=== PATIENT | male | born 1980 | race Caucasian/White ===

== ENCOUNTER 2018-12-11 00:42 | Emergency (ER) | payer BC ==
[2018-12-11] MEDS ORDERED: Acetaminophen/HYDROcodone 325-5 MG Tab PO ONE (00:43)
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
[2018-12-11] MEDS: Colchicine 0.6 MG Tab PO ONE ×2 (01:40)
--- NOTE | 2018-12-12 12:19 | CR ---
INDICATION: No known injury or trauma, has pain. Unable to flex or extend ankle. LEFT ANKLE: Three views of the left ankle revealed soft tissue swelling overlying the lateral malleolus. A bony density adjacent to the lateral malleolus most likely represents either an ununited chip fracture fragment from a previous injury or an accessory ossification center. An additional smaller density is noted more medially and inferiorly. However, a fracture or dislocation was not identified. Overall bone density appeared to be normal with no focal abnormal bone density seen. The ankle mortise is very slightly asymmetrical with slightly less joint space laterally raising question of inflammatory arthritic change. This should be correlated clinically. The ankle mortise was otherwise intact. A moderate to moderately large plantar calcaneus spur is noted. IMPRESSION: 1. Very slight narrowing of the lateral ankle mortise joint space, which could be on the basis of arthritis but should be correlated clinically. 2. Bony densities likely represent either chip fracture fragments that did not unite or accessory ossification centers at the lateral malleolus; however there is soft tissue swelling overlying this area, which should be correlated clinically. 3. Plantar calcaneal spur. If a focal bony abnormality is suspected clinically, additional examination such as MRI or nuclear bone imaging may be helpful. ZAYNABD
== END 2018-12-11 01:15 | disposition home or self-care (01) ==
LOC: FB.ED 00:42
DX: M10.072 Idiopathic gout, left ankle and foot (principal); I10 Essential (primary) hypertension; F17.210 Nicotine dependence, cigarettes, uncomplicated
CPT/HCPCS: 36415; 73610; 80048; 84550; 85025; 99283; A9270

== ENCOUNTER 2020-06-15 00:04 | Emergency (ER) | payer BC ==
[2020-06-15] MEDS ORDERED: methylPREDNISolone Sodium Succinate 125 MG/2 ML SDV IM ONE (00:15)
--- NOTE | 2020-06-15 01:07 | EDM.PDOC ---
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 helped his father put a canopy over his boat hoist, had put a mower on a trailer and had cinched it down pain is over L bicep tendon also has a mass that he noted in his L mid forearm no known injury no meds, did take ibuprofen 800 mg 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 L shoulder Pain Score (Numeric/FACES): 8 - Related Data Allergies Allergy/AdvReac Type Severity Reaction Status Date / Time No Known Allergies Allergy Verified 06/15/20 00:25 Home Meds: Home Meds Indomethacin [Indocin] 50 mg PO TID PRN #30 cap 12/11/18 [Rx] Lisinopril/Hydrochlorothiazide [Lisinopril-Hctz 10-12.5 mg Tab] 1 each PO DAILY 06/15/20 [History] allopurinoL [Zyloprim] 100 mg PO DAILY 06/15/20 [History] amLODIPine [Norvasc] 5 mg PO DAILY 06/15/20 [History] atorvaSTATin Calcium [Lipitor] 20 mg PO BEDTIME 06/15/20 [History] metFORMIN [Glucophage] 500 mg PO BIDMEALS 06/15/20 [History] predniSONE [Prednisone] 20 mg PO DAILY #5 tablet 06/15/20 [Rx] Past Medical History Cardiovascular History: Reports: High Cholesterol, Hypertension Respiratory History: Reports: Sleep Apnea Other Respiratory History: uses CPAP Musculoskeletal History: Reports: Fracture, Gout Other Musculoskeletal History: fx L thumb Endocrine/Metabolic History: Reports: Diabetes, Type II, Obesity/BMI 30+ - Infectious Disease History Infectious Disease History: Reports: Chicken Pox - Past Surgical History Musculoskeletal Surgical History: Reports: ORIF Other Musculoskeletal Surgeries/Procedures:: L thumb pinning Social & Family History - Family History Family Medical History: No Pertinent Family History - Tobacco Use Tobacco Use Status *Q: Current Every Day Tobacco User Years of Tobacco use: 10 Packs/Tins Daily: 0.8 - Caffeine Use Caffeine Use: Reports: Soda - Recreational Drug Use Recreational Drug Use: No ED ROS GENERAL - Review of Systems Review Of Systems: See Below Constitutional: Reports: No Symptoms HEENT: Reports: No Symptoms Respiratory: Reports: No Symptoms Cardiovascular: Reports: No Symptoms Endocrine: Reports: No Symptoms GI/Abdominal: Reports: No Symptoms : Reports: No Symptoms Musculoskeletal: Reports: Shoulder Pain, Muscle Pain Skin: Reports: No Symptoms Neurological: Reports: No Symptoms Psychiatric: Reports: No Symptoms Hematologic/Lymphatic: Reports: No Symptoms Immunologic: Reports: No Symptoms ED EXAM, GENERAL - Physical Exam Exam: See Below Exam Limited By: No Limitations General Appearance: Alert, WD/WN, No Apparent Distress Nose: Normal Inspection Throat/Mouth: Normal Inspection Head: Atraumatic Neck: Normal Inspection, Supple, Non-Tender. No: Lymphadenopathy (R), Lymphadenopathy (L) Respiratory/Chest: No Respiratory Distress, Lungs Clear, Normal Breath Sounds, No Accessory Muscle Use Cardiovascular: Regular Rate, Rhythm, No Edema, No Murmur GI/Abdominal: Soft, Non-Tender, No Distention Back Exam: Normal Inspection, Full Range of Motion Extremities: Other (takes off sweatshirt with R arm, leaves L arm at site, does allow passive ROM to 90 degrees of flex and abduction altho winces with pain, 1+ tender over biceps tender) Neurological: Alert, Oriented, CN II-XII Intact, Normal Cognition, No Motor/Sensory Deficits, Other (NT over L AC joint, mild tender at anterior L GH joint line, L humerus NT, questionable subc density of 10 x 5 x 5 cm over L biceps that may be slightly tender, not discrete) Psychiatric: Normal Affect, Normal Mood Skin Exam: Warm, Dry, Intact, Normal Color, No Rash Lymphatic: No Adenopathy Course - Vital Signs Last Recorded V/S: Last Vital Signs Temp 36.5 C 06/15/20 00:20 Pulse 89 06/15/20 02:18 Resp 18 06/15/20 02:18 BP 128/88 06/15/20 02:18 Pulse Ox 97 06/15/20 02:18 - Orders/Labs/Meds Orders: Active Orders 24 hr Category Date Time Status Humerus Lt [CR] Stat Exams 06/15/20 00:15 Taken Shoulder Comp Lt [CR] Stat Exams 06/15/20 00:15 Taken Labs: Laboratory Tests 05/09/2806/15/20 06/15/20 Range/Units 00:25 00:25 00:25 WBC 9.6 (3.2-10.1) x10-3/uL RBC 5.32 (3.90-5.90) x10(6)uL Hgb 15.5 (12.9-17.7) g/dL Hct 45.7 (38.3-50.1) % MCV 85.8 (80.8-98.7) fL MCH 29.1 (27.0-33.3) pg MCHC 33.9 (28.7-35.3) g/dL RDW 13.0 (12.4-15.0) % Plt Count 241 (117-477) x10(3)uL MPV 7.8 (6.7-11.0) fL Neut % (Auto) 55.0 (40.3-71.8) % Lymph % (Auto) 29.8 (15.8-45.3) % [place] % (Auto) 8.9 (5.5-15.2) % Eos % (Auto) 5.1 (0.1-6.8) % Baso % (Auto) 1.2 (0.3-3.8) % Neut # (Auto) 5.3 (1.7-6.9) x10-3/uL Lymph # (Auto) 2.9 (0.5-4.5) x10-3/uL [place] # (Auto) 0.9 (0.0-1.2) x10-3/uL Eos # (Auto) 0.5 (0.0-0.6) x10-3/uL Baso # (Auto) 0.1 (0.0-0.3) x10-3/uL Sodium 139 (135-145) mmol/L Potassium 3.8 (3.5-5.3) mmol/L Chloride 102 (100-110) mmol/L Carbon Dioxide 23 (21-32) mmol/L BUN 19 H (7-18) mg/dL Creatinine 1.0 (0.70-1.30) mg/dL Est Cr Clr Drug Dosing 102.49 mL/min Estimated GFR (MDRD) > 60 (>60) BUN/Creatinine Ratio 19.0 (9-20) Glucose 147 H (80-116) mg/dL Uric Acid 6.0 (2.6-6.0) mg/dL Calcium 8.7 (8.6-10.2) mg/dL Total Bilirubin 0.4 (0.1-1.3) mg/dL AST 21 (5-25) IU/L ALT 49 H (12-36) U/L Alkaline Phosphatase 93 (56-112) IU/L Creatine Kinase 180 H (60-160) IU/L C-Reactive Protein (0.5-0.9) mg/dL Total Protein 7.2 (6.0-8.0) g/dL Albumin 3.2 L (3.5-5.2) g/dL Globulin 4.0 g/dL Albumin/Globulin Ratio 0.8 Urine Color (YELLOW) Urine Appearance (CLEAR) Urine pH (5.0-6.5) Ur Specific [place] (1.010-1.025) Urine Protein (NEGATIVE) mg/dL Urine Glucose (UA) (NORMAL) mg/dL Urine Ketones (NEGATIVE) mg/dL Urine Occult Blood (NEGATIVE) Urine Nitrite (NEGATIVE) Urine Bilirubin (NEGATIVE) Urine Urobilinogen (NEGATIVE) mg/dL Ur Leukocyte Esterase (NEGATIVE) Urine RBC (0-5) Urine WBC (0-5) Ur Squamous Epith Cells (NS,R,O) Urine Bacteria (NS) Coarse Granular Casts (NS) 06/15/20 06/15/20 Range/Units 00:25 01:30 WBC (3.2-10.1) x10-3/uL RBC (3.90-5.90) x10(6)uL Hgb (12.9-17.7) g/dL Hct (38.3-50.1) % MCV (80.8-98.7) fL MCH (27.0-33.3) pg MCHC (28.7-35.3) g/dL RDW (12.4-15.0) % Plt Count (117-477) x10(3)uL MPV (6.7-11.0) fL Neut % (Auto) (40.3-71.8) % Lymph % (Auto) (15.8-45.3) % [place] % (Auto) (5.5-15.2) % Eos % (Auto) (0.1-6.8) % Baso % (Auto) (0.3-3.8) % Neut # (Auto) (1.7-6.9) x10-3/uL Lymph # (Auto) (0.5-4.5) x10-3/uL [place] # (Auto) (0.0-1.2) x10-3/uL Eos # (Auto) (0.0-0.6) x10-3/uL Baso # (Auto) (0.0-0.3) x10-3/uL Sodium (135-145) mmol/L Potassium (3.5-5.3) mmol/L Chloride (100-110) mmol/L Carbon Dioxide (21-32) mmol/L BUN (7-18) mg/dL Creatinine (0.70-1.30) mg/dL Est Cr Clr Drug Dosing mL/min Estimated GFR (MDRD) (>60) BUN/Creatinine Ratio (9-20) Glucose (80-116) mg/dL Uric Acid (2.6-6.0) mg/dL Calcium (8.6-10.2) mg/dL Total Bilirubin (0.1-1.3) mg/dL AST (5-25) IU/L ALT (12-36) U/L Alkaline Phosphatase (56-112) IU/L Creatine Kinase (60-160) IU/L C-Reactive Protein 0.3 L (0.5-0.9) mg/dL Total Protein (6.0-8.0) g/dL Albumin (3.5-5.2) g/dL Globulin g/dL Albumin/Globulin Ratio Urine Color Yellow (YELLOW) Urine Appearance Clear (CLEAR) Urine pH 5.0 (5.0-6.5) Ur Specific [place] 1.025 (1.010-1.025) Urine Protein 500 H (NEGATIVE) mg/dL Urine Glucose (UA) Normal (NORMAL) mg/dL Urine Ketones Negative (NEGATIVE) mg/dL Urine Occult Blood Negative (NEGATIVE) Urine Nitrite Negative (NEGATIVE) Urine Bilirubin Negative (NEGATIVE) Urine Urobilinogen Normal (NEGATIVE) mg/dL Ur Leukocyte Esterase Negative (NEGATIVE) Urine RBC 0-5 (0-5) Urine WBC 0-5 (0-5) Ur Squamous Epith Cells Occasional (NS,R,O) Urine Bacteria Occasional H (NS) Coarse Granular Casts Occasional H (NS) Meds: Medications Discontinued Medications Generic Name Dose Route Start Last Admin Trade Name Marshall PRN Reason Stop Dose Admin Methylprednisolone Sodium Succinate 125 mg 06/15/20 00:15 06/15/20 00:58 Methylprednisolone Sodium Succinate 125 Mg/2 Ml Sdv IM 06/15/20 00:16 125 mg ONETIME ONE Administration - Re-Assessments/Exams Free Text/Narrative Re-Assessment/Exam: 06/15/20 05:12 tender over biceps tendon questionable soft tissue density at L biceps prelim ED read of L shoulder and L humerus films are neg has inc'd gluc, A1C was inc'd in past, then dec'd, may need to be checked again unclear if pt has connective tissue disorder, has low alb, u/a shows protein which says is old yet not had 24 urine in past, unclear if he may have nephrotic syndrome vs CTD uric acid 7.7 in past, now 6.0 unclear why CK is inc'd Departure - Departure Time of Disposition: 02:28 Disposition: Home, Self-Care 01 Preliminary Cause of *Q: Sepsis & Multi System Organ Failure Clinical Impression: Biceps tendinitis of left shoulder, Elevated CK, Elevated ALT measurement, Hypoalbuminemia, Proteinuria, Hyperglycemia - Discharge Information *PRESCRIPTION DRUG MONITORING PROGRAM REVIEWED*: Not Applicable *COPY OF PRESCRIPTION DRUG MONITORING REPORT IN PATIENT [place]O: Not Applicable Prescriptions: predniSONE [Prednisone] 20 mg PO DAILY #5 tablet Instructions: Bicipital Tendinitis Referrals: Katt Laurent NP [Primary Care Provider] - Forms: ED Department Discharge Additional Instructions: For pain and inflammation, take ibuprofen 200 mg 4 tabs and acetaminophen 500 mg 2 tabs 3 times a day for one week. For pain and inflammation, take prednisone 20 mg 1 tab daily for 5 days. For pain and inflammation, use ice for 10 minutes 4 times a day for 2 days, longer if needed. Limit use of the left arm for the next several days while it is healing. Collect your urine for 24 hours to measure the total amount of protein and to test for the type of protein. Your glucose is running higher again, which you will want to discuss with your physician. Two of your muscle enzymes are running on the high side for unclear reason, which you will want to discuss with your physician as well. Return to the Emergency Department if you are feeling worse. Sepsis Event Note (ED) - Evaluation Sepsis Screening Result: No Definite Risk - Focused Exam Vital Signs: Vital Signs Temp Pulse Resp BP Pulse Ox 06/15/20 02:18 89 18 128/88 97 06/15/20 00:20 36.5 C 94 18 157/100 H 96 - My Orders Last 24 Hours: My Active Orders 06/15/20 00:15 Humerus Lt [CR] Stat Shoulder Comp Lt [CR] Stat - Assessment/Plan Last 24 Hours: My Active Orders 06/15/20 00:15 Humerus Lt [CR] Stat Shoulder Comp Lt [CR] Stat
--- NOTE | 2020-06-17 11:33 | CR ---
INDICATION: Possible subcutaneous mass at mid biceps. LEFT HUMERUS: Three views of the left humerus were obtained 06/15/20 - no comparisons. No definite soft tissue mass could be identified - correlate clinically. No significant appearing bone or joint abnormality was identified. A tiny calcific or possibly very tiny bony density is noted medial to the proximal ulnar metaphysis at the edge of the medial elbow joint compartment and may represent a dystropic soft tissue calcification from previous injury, an old chip fracture fragment that did not unite is felt to be less likely. IMPRESSION; No acute abnormality identified. Findings should be correlated clinically. MTDD
--- NOTE | 2020-06-17 11:35 | CR ---
INDICATION: Pain, left shoulder x1 day. No trauma history. LEFT SHOULDER: Three views of the left shoulder were obtained 06/15/20 - no comparison. There are some mild degenerative changes at the AC joint with no other significant bone or joint abnormality identified. MTDD
== END 2020-06-15 02:45 | disposition home or self-care (01) ==
LOC: FB.ED 00:04
DX: M75.22 Bicipital tendinitis, left shoulder (principal); R74.8 Abnormal levels of other serum enzymes; E88.09 Other disorders of plasma-protein metabolism, not elsewhere classified; R80.9 Proteinuria, unspecified; E11.65 Type 2 diabetes mellitus with hyperglycemia; E78.00 Pure hypercholesterolemia, unspecified; I10 Essential (primary) hypertension; M10.9 Gout, unspecified; E66.9 Obesity, unspecified; Z68.42 Body mass index [BMI] 45.0-49.9, adult
CPT/HCPCS: 36415; 73030; 73060; 80053; 81001; 82550; 84550; 85025; 86140; 96372; 99283; J2930